=== PATIENT | female | born 1970 | race Caucasian/White ===

== ENCOUNTER 2019-11-01 19:04 | Emergency (ER) | payer MEDICAID ==
[~2019-11-01] VITALS: Ht 162.6 cm; Wt 61.2 kg
--- NOTE | 2019-11-01 19:04 | NUR ---
Patient BIBA ALS, transferred to bed 4. RN evaluating patient at bedside.
[2019-11-01 19:12] VITALS: BP 142/57
--- NOTE | 2019-11-01 19:38 | NUR ---
49 Y/O FEMALE BIBA. PER RN FIELD CASE MANAGER, RESPONDED TO CALL TO PT S/P SYNCOPAL EPISODE. PT STATES HAVING SYNCOPE AFTER SEIZURES, UNWITNESSED. PT AOX4. AMBULATORY WITH STEADY GAIT. C/O HEADACHE 05/06. PT HAS HX OF SEIZURE, COMPLIANT WITH DILANTIN. PT STATES SEIZURES OCCUR AFTER SEVERE ANXIETY ATTACK. PT AT STABLE CONDITION. PLACED ON MONITOR. ERMD AWARE. WILL CONTINUE TO MONITOR.
[2019-11-01 20:27] LABS: BASOPHILS # (AUTO) 0.1 K/uL (0.00-0.22); BASOPHILS % (AUTO) 1.1 % (0.0-2.0); EOSINOPHILS # (AUTO) 0.3 K/uL (0-0.4); EOSINOPHILS % (AUTO) 3.3 % (0.0-4.0); HEMATOCRIT 43.7 % (36-48); HEMOGLOBIN 14.9 g/dL (12.0-16.0); LYMPHOCYTES # (AUTO) 1.5 K/uL (2.5-16.5); LYMPHOCYTES % (AUTO) 17.7 % (20.5-51.1); MEAN CORPUSCULAR HEMOGLOBIN 32 pg (27-31); MEAN CORPUSCULAR HGB CONC 34 g/dL (33-37); MEAN CORPUSCULAR VOLUME 94.8 fL (80-94); MONOCYTES # (AUTO) 0.7 K/uL (0.8-1.0); MONOCYTES % (AUTO) 7.9 % (1.7-9.3); NEUTROPHILS # (AUTO) 5.8 K/uL (1.8-7.7); PLATELET COUNT (AUTO) 242 K/uL (140-450); RED BLOOD CELL COUNT(AUTO) 4.61 MIL/uL (4.20-5.40); RED CELL DISTRIBUTION WIDTH 13.9 % (11.6-13.7); WHITE BLOOD COUNT (AUTO) 8.3 K/uL (4.8-10.8)
[2019-11-01 20:43] LABS: ALBUMIN 3.8 g/dL (3.4-5.0); ANION GAP 12.3 (8-16); CARBON DIOXIDE 29.9 mmol/L (21-32); CREATININE 0.8 mg/dL (0.6-1.3); POTASSIUM 4.2 mmol/L (3.5-5.1); TOTAL BILIRUBIN 0.2 mg/dL (0.0-1.0)
[2019-11-01 20:52] LABS: PHENYTOIN (DILANTIN) 17.8 ug/ml (10.0-20.0)
[2019-11-01 21:33] VITALS: BP 158/66
--- NOTE | 2019-11-01 21:33 | NUR ---
PT DISCHARGED WITH PAPERWORK. EDUCATED PT REGARDING D/C DIAGNOSIS AND INSTRUCTIONS. PT VERBALIZED UNDERSTANDING OF TEACHING. TOLD PT TO FOLLOW UP WITH PCP AND WHEN TO RETURN TO ED. PT STABLE CONDITION. ALL QUESTIONS ANSWERED.
== END 2019-11-01 21:33 | disposition home or self-care (01) ==
LOC: MED 19:04
DX: S01.412A Laceration without foreign body of left cheek and temporomandibular area, initial encounter (principal); F41.9 Anxiety disorder, unspecified; R55 Syncope and collapse; X58.XXXA Exposure to other specified factors, initial encounter; Y93.89 Activity, other specified; Y92.89 Other specified places as the place of occurrence of the external cause; Y99.8 Other external cause status
CPT/HCPCS: 36415; 71045; 80053; 80185; 84484; 85025; 93005; 99285

== ENCOUNTER 2022-08-28 06:24 | Day surgery (SDC) | payer OTHER ==
[~2022-08-28] VITALS: Ht 154.9 cm; Wt 85.3 kg
[2022-08-28] MEDS ORDERED: MIDAZOLAM 5 MG/5 ML VIAL ONE (07:43)
[2022-08-28] MEDS ORDERED: diphenhydrAMINE 50 MG/ML VIAL ONE (07:43)
[2022-08-28] MEDS ORDERED: fentaNYL citrate 0.05 MG/ML VIAL ONE (07:43)
[2022-08-28] MEDS ORDERED: MIDAZOLAM 2 MG/2 ML VIAL IVP ONE (08:40)
[2022-08-28] MEDS ORDERED: fentaNYL citrate 0.05 MG/ML VIAL IVP ONE (08:40)
== END 2022-08-28 06:30 | disposition home or self-care (01) ==
LOC: MOR 06:24 → MMU 06:25 → MOR 06:30
PROVIDERS: ATTEND Internal Medicine Gastroenterology
DX: R13.10 Dysphagia, unspecified (principal); K29.70 Gastritis, unspecified, without bleeding; K21.00 Gastro-esophageal reflux disease with esophagitis, without bleeding; K25.9 Gastric ulcer, unspecified as acute or chronic, without hemorrhage or perforation; E66.09 Other obesity due to excess calories; K31.89 Other diseases of stomach and duodenum; G40.909 Epilepsy, unspecified, not intractable, without status epilepticus; F41.9 Anxiety disorder, unspecified; F32.A Depression, unspecified; Z79.899 Other long term (current) drug therapy; Z20.822 Contact with and (suspected) exposure to COVID-19; Z68.35 Body mass index [BMI] 35.0-35.9, adult
CPT/HCPCS: 43239; 87426; 88305; 88312; 88313; 88342; J2250; J3010; J1200

== ENCOUNTER 2022-11-13 06:39 | Day surgery (SDC) | payer OTHER ==
[~2022-11-13] VITALS: Ht 154.9 cm; Wt 83.9 kg
[2022-11-13] MEDS ORDERED: diphenhydrAMINE 50 MG/ML VIAL ONE (07:25)
[2022-11-13] MEDS ORDERED: fentaNYL citrate 0.05 MG/ML VIAL ONE (07:25)
[2022-11-13] MEDS ORDERED: LIDOCAINE 2% 100 MG/5 ML UJET TP ONE (07:26)
[2022-11-13] MEDS ORDERED: MIDAZOLAM 5 MG/5 ML VIAL ONE (07:26)
[2022-11-13] MEDS ORDERED: fentaNYL citrate 0.05 MG/ML VIAL IVP ONE (09:25)
[2022-11-13] MEDS ORDERED: MIDAZOLAM 2 MG/2 ML VIAL IVP ONE (09:25)
== END 2022-11-13 09:59 | disposition home or self-care (01) ==
LOC: MDS 06:39 → MMU 06:40 → MDS 09:59
PROVIDERS: ATTEND Internal Medicine Gastroenterology
DX: Z12.11 Encounter for screening for malignant neoplasm of colon (principal); D12.2 Benign neoplasm of ascending colon; F41.9 Anxiety disorder, unspecified; K20.90 Esophagitis, unspecified without bleeding; Z87.11 Personal history of peptic ulcer disease; Z79.899 Other long term (current) drug therapy; Z20.822 Contact with and (suspected) exposure to COVID-19
CPT/HCPCS: 43235; 45385; 87426; 88305; J2250; J3010; J1200

== ENCOUNTER 2023-05-21 06:36 | Day surgery (SDC) | payer OTHER ==
[~2023-05-21] VITALS: Ht 154.9 cm; Wt 86.2 kg
[2023-05-21] MEDS ORDERED: LIDOCAINE 2% 100 MG/5 ML UJET TP ONE ×2 (07:26→08:20)
[2023-05-21] MEDS ORDERED: MIDAZOLAM 5 MG/5 ML VIAL ONE (07:26)
[2023-05-21] MEDS ORDERED: fentaNYL citrate 0.05 MG/ML VIAL ONE (07:26)
[2023-05-21] MEDS ORDERED: diphenhydrAMINE 50 MG/ML VIAL ONE (07:27)
[2023-05-21] MEDS ORDERED: fentaNYL citrate 0.05 MG/ML VIAL IVP ONE (08:20)
[2023-05-21] MEDS ORDERED: MIDAZOLAM 2 MG/2 ML VIAL IVP ONE (08:20)
== END 2023-05-21 08:47 | disposition home or self-care (01) ==
LOC: MDS 06:36 → MMU 06:43 → MDS 08:47
PROVIDERS: ATTEND Internal Medicine Gastroenterology
DX: Z09 Encounter for follow-up examination after completed treatment for conditions other than malignant neoplasm (principal); G40.909 Epilepsy, unspecified, not intractable, without status epilepticus; R13.10 Dysphagia, unspecified; Z86.010 Personal history of colon polyps; Z80.0 Family history of malignant neoplasm of digestive organs
CPT/HCPCS: 45380; J2250; J3010; J1200